=== PATIENT | female | born 1950 | race Caucasian/White ===

== ENCOUNTER 2018-02-28 13:21 | Emergency (ER) | payer BC, MEDICARE ==
[2018-02-28] MEDS ORDERED: Albuterol/Ipratropium NEB.SOL* Albuterol 2.5 MG/Ipratropium 0.5 MG 3 ML INH ONE (15:01)
--- NOTE | 2018-02-28 15:05 | ED ---
HPI Cardiac - HPI Summary HPI Summary: Patient presents with cough for 3 weeks. This started as sore throat and upper respiratory symptoms with sneezing, rhinorrhea, nasal congestion. Denies fevers chills difficulty breathing or swallowing. Cough persisted she feels like this is worse at night. Denies bloody cough, productive cough, wheezing. She does admit she was in [place] and was flying out the day the [place] are updated. Not sure she was exposed to any chemicals in the air however can be sure. No previous history of COPD, asthma, pneumonia, PE or other pulmonary issues. her medical history entails hypothyroidism for which he treats with levothyroxine. Otherwise healthy 67-year-old female. - History of Current Complaint Chief Complaint: EDUpperRespComplaint Stated Complaint: COUGH Time Seen by Provider: 02/28/18 13:57 Hx Obtained From: Patient Pain Intensity: 0 - Allergy/Home Medications Allergies/Adverse Reactions: Allergies Allergy/AdvReac Type Severity Reaction Status Date / Time No Known Allergies Allergy Verified 02/28/18 13:44 Home Medications: Home Medications Levothyroxine TAB* [Synthroid TAB*] 25 mcg PO DAILY 02/28/18 [History Confirmed 02/28/18] PMH/Surg Hx/FS Hx/Imm Hx Previously Healthy: Yes Endocrine/Hematology History: Denies: Hx Anticoagulant Therapy, Hx Blood Disorders, Hx Diabetes, Hx Thyroid Disease, Hx Anemia, Hx Unexplained Bleeding, Hx Coagulopothy Cardiovascular History: Denies: Hx Aneurysm, Hx Atrial Fibrillation, Hx Congestive Heart Failure, Hx Deep Vein Thrombosis, Hx Embolism, Hx Hypotension, Hx Hypertension Respiratory History: Denies: Hx Asthma, Hx Chronic Obstructive Pulmonary Disease (COPD), Hx Pneumonia, Hx Pulmonary Embolism GI History: Denies: Hx Gastroesophageal Reflux Disease Infectious Disease History: No Infectious Disease History: Denies: Traveled Outside the [place] in Last 30 Days - Social History Occupation: Retired Lives: With Family Alcohol Use: None Hx Substance Use: No Substance Use Type: Reports: None Hx Tobacco Use: No Smoking Status (MU): Never Smoked Tobacco Review of Systems Constitutional: Negative Negative: Fever, Chills, Fatigue Eyes: Negative ENT: Negative Cardiovascular: Negative Positive: Cough. Negative: Shortness Of Breath Gastrointestinal: Negative Positive: no symptoms reported Musculoskeletal: Negative Skin: Negative Neurological: Negative Psychological: Normal All Other Systems Reviewed And Are Negative: Yes Physical Exam Triage Information Reviewed: Yes Vital Signs On Initial Exam: Initial Vitals Temp Pulse Resp BP Pulse Ox 98.2 F 78 16 145/61 99 02/28/18 13:40 02/28/18 13:40 02/28/18 13:40 02/28/18 13:40 02/28/18 13:40 Vital Signs Reviewed: Yes Appearance: Positive: Well-Appearing, No Pain Distress, Well-Nourished Skin: Positive: Warm, Skin Color Reflects Adequate Perfusion, Dry Head/Face: Positive: Normal Head/Face Inspection Eyes: Positive: Normal, EOMI ENT: Positive: Normal ENT inspection, Hearing grossly normal, Pharynx normal, TMs normal, Uvula midline. Negative: Nasal congestion, Nasal drainage, Tonsillar swelling, Tonsillar exudate, Trismus, Muffled voice, Sinus tenderness Neck: Positive: Supple, Nontender, No Lymphadenopathy Respiratory/Lung Sounds: Positive: Breath Sounds Present, Other - possible wheezing heard B/L; coughs intermittently w/ talking - dry. Negative: Rales, Rhonchi, Stridor, Tracheal Deviation, Unable to speak in full sentences, Fatigue Cardiovascular: Positive: Normal, RRR, Pulses are Symmetrical in both Upper and Lower Extremities, S1, S2. Negative: Murmur, Rub, Leg Edema Left, Leg Edema Right Abdomen Description: Positive: Nontender, No Organomegaly, Soft Bowel Sounds: Positive: Present Musculoskeletal: Positive: Normal, Strength/ROM Intact Neurological: Positive: Normal, Sensory/Motor Intact, Alert, Oriented to Person Place, Time, CN Intact II-III Psychiatric: Positive: Normal. Negative: Anxious Diagnostics - Vital Signs Vital Signs Temp Pulse Resp BP Pulse Ox 02/28/18 13:40 98.2 F 78 16 145/61 99 - Laboratory Lab Statement: Any lab studies that have been ordered have been reviewed, and results considered in the medical decision making process. Re-Evaluation - Re-Evaluation First Eval Change: Improved - breathing easier s/p duoneb Disposition - Course Course Of Treatment: CXR: posterior medial Rt lobe w/ early signs of PNA (viral vs. bacterial). Given h/o cough x 3 weeks, will start anbx and have pt f/u w/ PCP. Return to ED if danger s/sx present. - Diagnoses Provider Diagnoses: Pneumonia Discharge - Sign-Out/Discharge Documenting (check all that apply): Discharge/Admit/Transfer - Discharge Plan Condition: Stable Disposition: HOME Prescriptions: Albuterol HFA INHALER* [Ventolin HFA Inhaler*] 2 puff INH Q6H PRN #1 mdi PRN Reason: Cough Azithromycin TAB* [Zithromax TAB (Z-MARCO) 250 mg #6 tabs] 250 mg PO DAILY #6 tab Patient Education Materials: Bacterial Pneumonia (ED) Referrals: No Primary Care Phys,NOPCP [Primary Care Provider] - Additional Instructions: Nasal wash (netti pot or saline spray) & salt water throat gargles 2 x day Drink you body weight in ounces of water every day Sleep 8+ hours per night Avoid Dairy and sugar Hot herbal/decaf tea with lemon & honey Chicken broth (preferably organic, free range chicken) Humidifier in house, but especially near bed at night Keep home temperature at 68F or less to reduce dryness Use cough drops/throat lozenges Try a facial steam with or without eucalyptus essential oil or [employer] Vapor rub for congestion Avoid smoke, candles, perfumes, colognes, scented soaps/detergents , air fresheners and cleaning chemicals as these can cause airway irritation and trigger coughing Start probiotics in between antibiotics (ie. Yogurt and/or capsules of L. acidophilus, L. bifidus, L. casei, etc) Follow-up with PCP in 1 week. Call tomorrow to schedule an appointment. If symptoms are worse, return to the ED. - Billing Disposition and Condition Condition: STABLE Disposition: Home
--- NOTE | 2018-02-28 15:58 | RAD ---
Indication: Cough 2 views of the chest including dual energy PA views demonstrates airspace disease in the right medial posterior lung base. This may represent early pneumonia. Left lung field is clear. IMPRESSION: There is suggestion of early airspace disease in the right posterior medial lung base consistent with pneumonia.
[2018-02-28 16:47] VITALS: BP 126/79
== END 2018-02-28 16:44 | disposition home or self-care (01) ==
LOC: ED 13:21
DX: J18.9 Pneumonia, unspecified organism (principal)
CPT/HCPCS: 71046; 99282; A9270-GY